=== PATIENT | female | born 1940 | race Caucasian/White ===

== ENCOUNTER 2017-01-28 08:29 | Inpatient (IN) | payer MEDICARE, OTHER ==
[~2017-01-28] VITALS: Ht 160 cm; Wt 74.5 kg
[2017-01-28] MEDS ORDERED: DIPHTH/TET/ACEL PERTUSS (ADULT) 0.5 ML VIAL IM* ONE (09:00)
--- NOTE | 2017-01-28 09:40 | RADRPT ---
PROCEDURE: XR Knee. CLINICAL INDICATION: Fall, pain TECHNIQUE: 3 views of the left knee are available for review. COMPARISON: None available FINDINGS: No acute fracture or dislocation identified. Bony mineralization is normal. No radiopaque foreign body is identified. Alignment is anatomic. IMPRESSION: 1. Unremarkable left knee x-ray series. 2. No acute fracture or dislocation is seen. RPTAT: EE .Zack Srivastava MD, MD Date Time Electronically viewed and signed by .Zack Srivastava MD, on 01/28/2017 09:40 .R/
--- NOTE | 2017-01-28 09:52 | ERD ---
ER Documentation Chief Complaint Date/Time DATE: 01/28/17 TIME: 09:45 Chief Complaint grounf level fall with L facial trauma HPI 76-year-old female who presents emergency room with a ground-level fall. The patient states that she was ambulating in her left foot caught on uneven pavement. She fell forward hitting her head. She denies anticoagulants. The patient has multiple contusions and hematomas to the front of her face. The patient denies any pain. She denies any neck pain. She has small abrasion to her left knee but denies any pain. No prodrome of chest pain or shortness of breath. Unknown tetanus status. She does not know the names of her medications. ROS All systems reviewed and are negative except as per history of present illness. Medications Home Meds Reported Medications Ibuprofen* (Motrin*) 400 Mg Tab, 400 MG PO Q8H Y for PAIN, TAB 01/28/17 Multivitamins* (Theragran*) 1 Tab Tab, 1 TAB PO DAILY, TAB 01/28/17 Ferrous Sulfate* (Ferrous Sulfate*) 325 Mg Tabec, 325 MG PO DAILY, TAB 01/28/17 Verapamil Hcl* (Isoptin SR*) 120 Mg Tabsr, 120 MG PO BID, TAB.SA 01/28/17 Aspirin (Low Dose Aspirin) 81 Mg Tablet.dr, 81 MG PO DAILY, #30 TAB 01/28/17 Atorvastatin* (Atorvastatin*) 40 Mg Tablet, 40 MG PO QHS, #30 TAB 01/28/17 Clopidogrel Bisulfate (Clopidogrel) 75 Mg Tablet, 75 MG PO DAILY, #30 TAB 01/28/17 Esomeprazole Mag Trihydrate (Nexium) 40 Mg Capsule.dr, 40 MG PO DAILY, #30 CAP 01/28/17 Ezetimibe* (Zetia*) 10 Mg Tablet, 10 MG PO HS, TAB 01/28/17 Ibandronate Sodium* (Boniva*) 150 Mg Tablet, 150 MG PO Q28D, TAB 01/28/17 Magnesium Oxide* (Mag-Oxide*) 400 Mg Tablet, 400 MG PO DAILY, TAB 01/28/17 Ascorbic Acid* (Vitamin C*) 500 Mg Capsule.sa, 500 MG PO DAILY, CAP 01/28/17 Calcium Carbonate/Vitamin D3 (OYSTER SHELL 500 MG + VIT D TB) 1 Each Tablet, 1 EACH PO TID, TAB 01/28/17 Allergies Allergies: Coded Allergies: No Known Allergy (Unverified , 01/28/17) PMhx/Soc Medical and Surgical Hx: pt denies Surgical Hx History of Surgery: No Anesthesia Reaction: No Hx Neurological Disorder: Yes (hx cva) Hx Respiratory Disorders: No Hx Cardiac Disorders: No Hx Psychiatric Problems: No Hx Miscellaneous Medical Probl: No Hx Alcohol Use: No Hx Substance Use: No Hx Tobacco Use: No Smoking Status: Never smoker FmHx Family History: No diabetes Physical Exam Vitals Vital Signs Date Time Temp Pulse Resp B/P Pulse Ox O2 Delivery O2 Flow Rate FiO2 01/28/17 10:40 97.8 67 18 125/63 99 Room Air 01/28/17 08:37 97.8 86 20 106/89 96 Physical Exam Airway is intact Bilateral breath sounds Strong distal pulses No obvious deficits General: Well developed, well nourished, no acute distress Head: Multiple abrasions noted to the face with a left supraorbital hematoma, left hematoma over the zygomatic arch, small laceration inside upper lip with upper lip hematoma Eyes: Pupils equally reactive, EOM intact ENT: Moist mucous membranes, no dental injury or loose dentition, the patient has a laceration inside the mucosa of the left upper lip that is superficial Neck: Supple, no lymphadenopathy, No midline tenderness, deformities, step-offs to the cervical spine, full active and passive range of motion without midline pain. Respiratory: Lungs clear bilaterally, no distress, no chest wall tenderness, no crepitus Cardiovascular: RRR, no murmurs, rubs, or gallops Abdominal: Soft, non-tender, non-distended, no peritoneal signs, pelvis is stable : Deferred MSK: No edema, no unilateral swelling, 5/5 strength, no midline tenderness deformities or step-offs to the thoracolumbar spine. Left knee with full active and passive range of motion with no bony mallet abnormalities. No other bony abnormalities to the extremity Neurologic: Alert and oriented, moving all extremities, normal speech, no focal weakness, no cerebellar signs Skin: No ecchymoses or bruising to the chest or abdomen, abrasion noted to the left knee Psych: Normal mood Result Diagram: 01/28/17 1038 01/28/17 1038 Results 24 hrs Laboratory Tests Test 01/28/17 10:38 White Blood Count 9.410^3/ul Red Blood Count 4.3610^6/ul Hemoglobin 12.5g/dl Hematocrit 38.6% Mean Corpuscular Volume 88.5fl Mean Corpuscular Hemoglobin 28.7pg Mean Corpuscular Hemoglobin Concent 32.4g/dl Red Cell Distribution Width 14.1% Platelet Count 90020^3/UL Mean Platelet Volume 10.1fl Neutrophils % 75.5% Lymphocytes % 19.2% Monocytes % 4.1% Eosinophils % 0.4% Basophils % 0.3% Nucleated Red Blood Cells % 0.0/100WBC Neutrophils # 7.110^3/ul Lymphocytes # 1.810^3/ul Monocytes # 0.410^3/ul Eosinophils # 0.010^3/ul Basophils # 0.010^3/ul Nucleated Red Blood Cells # 0.010^3/ul Prothrombin Time 12.4Sec Prothrombin Time Ratio 1.0 INR International Normalized Ratio 0.92 Activated Partial Thromboplast Time 23.9Sec Sodium Level 143mmol/L Potassium Level 3.9mmol/L Chloride Level 104mmol/L Carbon Dioxide Level 27mmol/L Anion Gap 16 Blood Urea Nitrogen 18mg/dl Creatinine 0.53mg/dl Glucose Level 99mg/dl Calcium Level 9.4mg/dl Current Medications Medications (Trade) Dose Ordered Sig/Zhou Route PRN Reason Start Time Stop Time Status Last Admin Dose Admin Diphtheria/ Tetanus/Acell Pertussis (Adacel) 0.5 ml ONCE ONCE IM* 01/28/17 09:00 01/28/17 09:01 DC 01/28/17 08:46 Ondansetron HCl (Zofran Inj) 4 mg ER BRIDGE PRN IV NAUSEA AND/OR VOMITING 01/28/17 12:00 01/29/17 11:59 Acetaminophen (Tylenol Tab) 650 mg ER BRIDGE PRN PO MILD PAIN/FEVER 01/28/17 12:00 01/29/17 11:59 Procedures/MDM EKG, MONITORS, & DIAGNOSTIC IMAGING: X-ray left knee: I reviewed and interpreted multiple views of the x-ray Bones: No evidence of acute fracture dislocation or subluxation Soft tissue: No evidence of foreign body CT brain: IMPRESSION: 1. 5 mm mild hyperdensity near the right central sulcus/precentral gyrus which is concerning for small subarachnoid hemorrhage. 2. Left frontal scalp and left periorbital soft tissue swelling and hematoma without underlying skull fracture. 3. 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 4. Mild intracranial atherosclerosis and moderate chronic small vessel ischemic changes. 5. Mild generalized cerebral volume loss. Critical result: A call report was made and above findings were discussed and acknowledged by Eugenio Rodriguez on 01/28/2017 10:30 AM . RPTAT: CT facial bone: IMPRESSION: 1. Left frontal scalp and periorbital soft tissue swelling and hematoma without underlying fracture. RPTAT: CT cervical spine: IMPRESSION: 1. No acute fracture or traumatic subluxation. 2. Multilevel mild degenerative changes of the cervical spine, most prominent at C5-C6. 3. Multilevel mild to moderate foraminal stenosis as outlined in details in findings. 4. Posterior disk osteophyte complexes contribute to mild to moderate spinal canal narrowing at C5-C6 and mild at C3-C4, C4-C5 and C5-C6. RPTAT: Laboratory analysis: No evidence of anemia, thrombocytopenia or coagulopathy MEDICAL DECISION MAKING: The patient presents with clear mechanical fall. The patient describes the fall. The patient has multiple blunt injuries to the face and a contusion to the left knee. No midline tenderness of the cervical spine but given the patient's age CT imaging would be appropriate. The patient refuses pain medication. Tetanus will be updated. Wound care to be provided. ER COURSE: The patient has CT evidence of a small traumatic subarachnoid hemorrhage. An emergent phone call was placed to Dr. Duran, on-call for neurosurgery. He was able to review the imaging. He recommends inpatient hospitalization, disposition to telemetry and repeat CT in 6 hours. The patient's laboratory testing does not show evidence of coagulopathy. The patient's pain remains well controlled. Her neurologic exam is normal. I kept the patient and/or family informed of laboratory and diagnostic imaging results throughout the emergency room course. DISPOSITION PLAN: Telemetry admission CONSULTATION: Accepting care team and consultations: I discussed the current laboratory data, diagnostic imaging and emergency care provided. Admitting team: Dr. Otis Guan, primary care physician notified Admitting team indication: Insurance directed Consulting services: Dr. Duran, neurosurgery Departure Diagnosis: Primary Impression: Traumatic subarachnoid hemorrhage Encounter type: initial encounter Loss of consciousness presence/duration: without LOC Qualified Code: S06.6X0A - Traumatic subarachnoid hemorrhage, without LOC, initial encounter Additional Impressions: Periorbital contusion of left eye Encounter type: initial encounter Qualified Code: S05.12XA - Periorbital contusion of left eye, initial encounter Laceration of oral cavity Encounter type: initial encounter Qualified Code: S01.512A - Laceration of oral cavity, initial encounter Condition: Stable EUGENIO GRADY MD Jan 28, 2017 09:51
[2017-01-28] MEDS ORDERED: CALC-277 PO (10:28)
[2017-01-28] MEDS ORDERED: ASCO500C7 PO (10:29)
[2017-01-28] MEDS ORDERED: MAGN400T27 PO (10:29)
[2017-01-28] MEDS ORDERED: IBAN150T7 PO (10:36)
--- NOTE | 2017-01-28 10:36 | RADRPT ---
PROCEDURE: CT Brain without. CLINICAL INDICATION: Trauma, fall, pain. TECHNIQUE: A CT of the brain was performed on multidetector high-resolution CT scanner utilizing a xial sections from the skull base through the vertex without contrast. The scan was reviewed in sof t tissue brain and high frequency resolution bone algorithm windows. Images were reviewed on a high -resolution PACS workstation. One or more the following does reduction techniques were utilized: Aut omated exposure control, adjustment of the mA/ or kV according to patient's size, or use of iterativ e reconstruction technique. The exam CTDI = 43.48 mGy and the DLP = 720.23 mGy-cm. COMPARISON: None available. FINDINGS: There is 5 mm mild hyperdensity near the right central sulcus/precentral gyrus which is concerning f or small subarachnoid hemorrhage. Old infarct is noted involving left frontal periventricular white matter with associated ex vacuo di latation of the left frontal horn. The ventricles and sulci are otherwise mildly to moderately prominent indicative of volume loss. The re is no mass effect or midline shift. The garcia/white matter differentiation is preserved. There are additional moderate foci of hypoattenuation in the white matter, which are nonspecific in etiology but likely reflect chronic small vessel ischemic changes. There are mild intracranial vasc ular calcifications consistent with atherosclerosis. The visualized paranasal sinuses are essentiall y clear. There is thinning of bilateral lens indicative of prior lens replacement. Left frontal scalp and left periorbital soft tissue swelling and hematoma are noted without underlyi ng skull fracture. IMPRESSION: 1. 5 mm mild hyperdensity near the right central sulcus/precentral gyrus which is concerning for sm all subarachnoid hemorrhage. 2. Left frontal scalp and left periorbital soft tissue swelling and hematoma without underlying sku ll fracture. 3. 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 4. Mild intracranial atherosclerosis and moderate chronic small vessel ischemic changes. 5. Mild generalized cerebral volume loss. Critical result: A call report was made and above findings were discussed and acknowledged by Eugenio Chen on 01/28/2017 10:30 AM . RPTAT: HH .Ledy Galicia MD, Date Time Electronically viewed and signed by .Ledy Galicia MD, MD on 01/28/2017 10:36 .N/
--- NOTE | 2017-01-28 10:41 | RADRPT ---
PROCEDURE: CT scan facial bones CLINICAL INDICATION: Trauma. Facial injury. Pain. TECHNIQUE: CT scan of the face was performed on the a high-resolution multidetector CT scanner wit h multiple contiguous axial images obtained through the face. Coronal and sagittal reformatted imag es were obtained from the axial source images. Exam CTDI = 29.52 mGy and the DLP = 583.94 mGy-cm. COMPARISON: None available. FINDINGS: Left frontal scalp and periorbital soft tissue swelling and hematoma are noted measuring up to 1 cm in thickness without underlying fracture. No acute fracture or dislocation is seen. The orbital globes are unremarkable. Nasal septum is inta ct. Paranasal sinuses are clear. There is thinning of bilateral lens indicative of prior lens repl acement. IMPRESSION: 1. Left frontal scalp and periorbital soft tissue swelling and hematoma without underlying fracture . RPTAT: HH .Ledy Galicia MD, Date Time Electronically viewed and signed by .Ledy Galicia MD, on 01/28/2017 10:41 .N/
[2017-01-28 10:45] LABS: ADD SCAN DIFF NO
--- NOTE | 2017-01-28 10:46 | RADRPT ---
PROCEDURE: CT cervical spine without contrast CLINICAL INDICATION: Trauma. Neck pain. TECHNIQUE: CT scan of the cervical spine [facility] was administered. Coronal and sagittal reformatted images were obtained from th e axial source images. Images were reviewed on a high-resolution PACS workstation. One or more the f ollowing does reduction techniques were utilized: Automated exposure control, adjustment of the mA/ or kV according to patient's size, or use of iterative reconstruction technique. Exam CTDI = 22.14 m Gy and the DLP = 421.77 mGy-cm. COMPARISON: None available. FINDINGS: There is maintenance of the normal cervical lordosis. Alignment remains intact. No acute fracture or dislocation is seen. The vertebral body heights are preserved. No mass, hematoma, or other soft tissue abnormality is seen. There are multilevel mild degenerative changes of the cervical spine, manifested by osteophytosis an d disc height narrowing, most prominent at C5-C6. Uncovertebral osteophytes and facet arthropathy re sult in multilevel foraminal stenosis: at C3-C4 mild on the right, at C4-C5 moderate on the right an d mild to moderate on the left, and at C5-C6 moderate on the right and mild to moderate on the left. Posterior disk osteophyte complexes contribute to mild to moderate spinal canal narrowing at C5-C6 and mild at C3-C4, C4-C5 and C5-C6. IMPRESSION: 1. No acute fracture or traumatic subluxation. 2. Multilevel mild degenerative changes of the cervical spine, most prominent at C5-C6. 3. Multilevel mild to moderate foraminal stenosis as outlined in details in findings. 4. Posterior disk osteophyte complexes contribute to mild to moderate spinal canal narrowing at C5- C6 and mild at C3-C4, C4-C5 and C5-C6. RPTAT: HH .Ledy Galicia MD, MD Date Time Electronically viewed and signed by .Ledy Galicia MD, MD on 01/28/2017 10:46 .N/
[2017-01-28] MEDS ORDERED: EZET10TA3 PO (10:50)
[2017-01-28] MEDS ORDERED: ESOM40CA PO (10:51)
[2017-01-28 10:52] LABS: BASOPHILS % 0.3 % (0.0-2.0); EOSINOPHILS % 0.4 % (0.0-7.0); HEMATOCRIT 38.6 % (37.0-47.0); HEMOGLOBIN 12.5 g/dl (12.0-16.0); LYMPHOCYTES # 1.8 10^3/ul (0.8-2.9); LYMPHOCYTES % 19.2 % (15.0-51.0); MEAN CORPUSCULAR HEMOGLOBIN 28.7 pg (29.0-33.0); MEAN CORPUSCULAR HGB CONC 32.4 g/dl (32.0-37.0); MEAN CORPUSCULAR VOLUME 88.5 fl (82.0-101.0); MEAN PLATELET VOLUME 10.1 fl (7.4-10.4); MONOCYTE # 0.4 10^3/ul (0.3-0.9); MONOCYTES % 4.1 % (0.0-11.0); NEUTROPHIL # 7.1 10^3/ul (1.6-7.5); NEUTROPHILS % 75.5 % (39.0-77.0); PLATELET COUNT 213 10^3/UL (140-415); RED BLOOD COUNT 4.36 10^6/ul (4.20-5.40); RED CELL DISTRIBUTION WIDTH 14.1 % (11.5-14.5); WHITE BLOOD COUNT 9.4 10^3/ul (4.8-10.8)
[2017-01-28] MEDS ORDERED: ASPI-664 PO (10:54)
[2017-01-28] MEDS ORDERED: ATOR40TA68 PO (10:54)
[2017-01-28] MEDS ORDERED: CLOP75TA27 PO (10:54)
[2017-01-28] MEDS ORDERED: VER120SR PO (10:55)
[2017-01-28] MEDS ORDERED: FER325 PO (10:56)
[2017-01-28] MEDS ORDERED: MULTI PO (10:56)
[2017-01-28] MEDS ORDERED: IBUP400T22 PO (10:57)
[2017-01-28 11:00] LABS: POTASSIUM 3.9 mmol/L (3.5-5.1)
[2017-01-28 11:02] LABS: CREATININE 0.53 mg/dl (0.44-1.00); INR 0.92; PARTIAL THROMBOPLASTIN TIME 23.9 Sec (25.0-35.0); PROTIME 12.4 Sec (12.2-14.2)
[2017-01-28 11:03] LABS: CALCIUM 9.4 mg/dl (8.4-10.2)
[2017-01-28] MEDS ORDERED: ACETAMINOPHEN 325 MG TAB PO PRN (12:00)
[2017-01-28] MEDS ORDERED: ONDANSETRON 4 MG INJ IV PRN (12:00)
[2017-01-28 14:38] VITALS: TEMP 97.9
[2017-01-28] MEDS ORDERED: IBUPROFEN 600 MG TAB PO ONE (15:30)
--- NOTE | 2017-01-28 18:51 | RADRPT ---
PROCEDURE: CT Brain without contrast. CLINICAL INDICATION: Follow-up subarachnoid hemorrhage TECHNIQUE: A CT of the brain was performed on a GE [employer] 64-slice CT scanner utilizing axial imaging from the skull base through the vertex without IV contrast. Multiplanar reformatted images were made. Images were reviewed on a PACS workstation. The CTDIvol is 43.48 mGy and the DLP is 720 .23 mGycm. One of the following 3 dose reduction techniques were used: Automated exposure control; adjustment of the mA and/or kV according to patient size; or use of iterative reconstruction technique. COMPARISON: Head CT dated 01/28/2017 FINDINGS: There is no intracranial hemorrhage, mass effect, or midline shift. No extra-axial fluid collection is seen. The ventricles and sulci are age appropriate. Mild diffuse volume loss is present with ex vacuo dilatation of the left lateral ventricle. The previously-described 5 mm focus of subarachnoid hemorrhage in the right central sulcus and precentral gyrus is slightly decreased in attenuation. Decreased attenuation is present in the left greater than right frontal and parietal lobes and speci fically the centrum semiovale continuing inferiorly into the left acosta radiography. A chronic lef t insular and acosta radiata infarct is present. No evidence for additional hemorrhage is present. M ild vascular calcifications are present of the intracranial internal carotid arteries. Visualized scalp and calvarium are remarkable for a left frontal and preseptal scalp hematoma withou t underlying calvarial fracture. The bilateral orbits are remarkable for remote lens replacement. T he bilateral paranasal sinuses, mastoid air cells and middle ear cavities are clear. IMPRESSION: 1. Interval evolution of previously described 5 mm focus of right central sulcus and precentral gyr us subarachnoid hemorrhage. No evidence for interval onset of new hemorrhages are present. 2. Interval decrease in the previously described left frontal scalp and pre-septal hematoma. 3. No significant interval change in the chronic left frontal acosta radiata and insular infarct. 4. Chronic left greater than right moderate microvascular ischemic disease and mild volume loss 5. Mild atherosclerotic vascular disease RPTAT: HDC .Ai Burgos MD, MD Date Time Electronically viewed and signed by .Ai Burgos MD, on 01/28/2017 18:51 .C/
--- NOTE | 2017-01-28 19:22 | QN ---
Documentation Comment [id number] KERRY DIALLO MD Jan 28, 2017 19:22
[2017-01-28 20:26] VITALS: PULSE 82
[2017-01-28] MEDS: VERAPAMIL (SR) 120 MG TAB PO SCH (21:00)
[2017-01-28] MEDS ORDERED: hydrALAzine 20 MG INJ IV PRN (21:30)
[2017-01-28] MEDS ORDERED: DEXTROSE 5%-0.45% NACL 1,000 ML IV SCH (21:30)
[2017-01-28 22:00] VITALS: Ht 160 cm; Wt 74.5 kg
[2017-01-28] MEDS: ATORVASTATIN 40 MG TAB PO SCH (22:12)
[2017-01-28] MEDS: EZETIMIBE 10 MG TAB PO SCH (22:12)
[2017-01-28] MEDS: CALCIUM/VITAMIN D (500/200) TAB PO SCH (22:12)
[2017-01-28 22:25] VITALS: BP 165/73; RESP 17
--- NOTE | 2017-01-28 23:33 | HP ---
DATE OF ADMISSION: 01/28/2017 HISTORY OF PRESENT ILLNESS: The patient is a 76-year-old female who has a history of hypertension. The patient has history of dyslipidemia, history of CVA. The patient presented to this hospital af ter a ground-level fall. She claimed that she was walking and she tripped and fell down, hitting he r head, and patient in the ER noted to have multiple contusions and hematoma to the front of the fac e. The patient's CT scan shows possible small [employer]ATIONS [employer] bleed. Blood pressure 125/63, hematocrit 38.6, s odium 143, potassium 3.9, and patient is being admitted for further management. CT brain shows 5 mm mid hyperdensity near right central sulcus, precentral gyrus which is concerning for small subarach noid hemorrhage, left frontal scalp and left periorbital soft-tissue swelling and hematoma without u nderlying skull fracture, old infarction involving left frontal periventricular white matter, mild i ntracranial atherosclerosis and moderate chronic small-vessel ischemic changes, mild generalized cer ebral volume loss. The patient's CT cervical spine: No acute fracture or traumatic subluxation, mu ltilevel mild degenerative changes of the cervical spine most prominent at C5-C6, multilevel mild to moderate foraminal stenosis. Posterior disk osteophyte. The patient is going to be seen by Dr. Calderon jama from Neurosurgery. PAST MEDICAL HISTORY: Hypertension, history of dyslipidemia, CVA in the past. ALLERGY HISTORY: NEGATIVE. FAMILY HISTORY: Noncontributory. SOCIAL HISTORY: Negative. MEDICATION HISTORY: 1. Ascorbic acid. 2. Aspirin. 3. Lipitor. 4. Calcium carbonate. 5. Plavix. 6. Omeprazole. 7. Zetia. 8. Iron sulfate. 9. Boniva. 10. Ibuprofen. 11. Magnesium oxide. 12. Multivitamin. 13. Verapamil. REVIEW OF SYSTEMS: HEENT: Unremarkable. No headache, diplopia, blurred vision. RESPIRATORY: Unremarkable. CARDIOVASCULAR: Unremarkable. ABDOMEN: Unremarkable. EXTREMITIES: No numbness, weakness, tingling. CENTRAL NERVOUS SYSTEM: As mentioned above. PHYSICAL EXAMINATION: GENERAL: The patient is awake, alert with facial bruise noted. VITAL SIGNS: Stable. Pulse 86, blood pressure 148/94. HEENT: Head is atraumatic, normocephalic. Pupils equal, reactive to light. NECK: Supple. No JVD. LUNGS: Clear. CARDIOVASCULAR: S1, S2 are normal. ABDOMEN: Soft, nontender. Bowel sounds present. No palpable mass or hepatosplenomegaly. No guard ing, rebound tenderness. EXTREMITIES: No cyanosis, clubbing, edema. CENTRAL NERVOUS SYSTEM: The patient is awake, alert. No focal deficit. LABORATORY DATA: As mentioned above. IMPRESSION: 1. Status post mechanical fall. 2. Central nervous system bleed. 3. Hypertension. 4. History of cerebrovascular accident. 5. Dyslipidemia. 6. History of osteoporosis. PLAN: Observe this patient, hold aspirin and Plavix, neuro watch. Other recommendations per Dr. Se ju Duran. Orders were done. Dictated By: KERRY DIALLO MD BS/NTS Conf#: [id number] DID#: [id number]
[2017-01-29] VITALS (11 sets, daily range): BP systolic 129–167; BP diastolic 60–77; PULSE 76–100; RESP 16–20
[2017-01-29 06:47] LABS: ADD SCAN DIFF NO
[2017-01-29 06:58] LABS: BASOPHILS % 0.2 % (0.0-2.0); EOSINOPHILS % 0.1 % (0.0-7.0); HEMATOCRIT 42.3 % (37.0-47.0); HEMOGLOBIN 13.6 g/dl (12.0-16.0); LYMPHOCYTES # 1.8 10^3/ul (0.8-2.9); LYMPHOCYTES % 12.8 % (15.0-51.0); MEAN CORPUSCULAR HEMOGLOBIN 28.1 pg (29.0-33.0); MEAN CORPUSCULAR HGB CONC 32.2 g/dl (32.0-37.0); MEAN CORPUSCULAR VOLUME 87.4 fl (82.0-101.0); MEAN PLATELET VOLUME 10.6 fl (7.4-10.4); MONOCYTE # 0.5 10^3/ul (0.3-0.9); MONOCYTES % 3.8 % (0.0-11.0); NEUTROPHIL # 11.3 10^3/ul (1.6-7.5); NEUTROPHILS % 82.7 % (39.0-77.0); PLATELET COUNT 257 10^3/UL (140-415); RED BLOOD COUNT 4.84 10^6/ul (4.20-5.40); RED CELL DISTRIBUTION WIDTH 14.1 % (11.5-14.5); WHITE BLOOD COUNT 13.7 10^3/ul (4.8-10.8)
[2017-01-29 07:55] LABS: CREATININE 0.48 mg/dl (0.44-1.00); POTASSIUM 3.9 mmol/L (3.5-5.1)
[2017-01-29] MEDS: CALCIUM/VITAMIN D (500/200) TAB PO SCH ×3 (08:14→20:40)
[2017-01-29] MEDS: MULTIVITAMINS THERAPEUTIC TAB PO SCH (08:14)
[2017-01-29] MEDS: FERROUS SULFATE (EC) 325 MG TAB PO SCH (08:14)
[2017-01-29] MEDS: MAGNESIUM OXIDE 400 MG TAB PO SCH (08:14)
[2017-01-29] MEDS: ASCORBIC ACID 500 MG TAB PO SCH (08:14)
[2017-01-29] MEDS: VERAPAMIL (SR) 120 MG TAB PO SCH ×2 (08:15→20:40)
[2017-01-29] MEDS ORDERED: ACETAMINOPHEN 325 MG TAB PO PRN (11:00)
--- NOTE | 2017-01-29 11:19 | PN ---
Date/Time of Note Date/Time of Note DATE: 01/29/17 TIME: 11:16 Assessment/Plan VTE Prophylaxis VTE Prophylaxis Intervention: ambulation Lines/Catheters IV [facility]ter [facility] (from [facility]): Peripheral IV Urinary Cath still in place: No Assessment/Plan Chief Complaint/Hosp Course 1. Status post mechanical fall. 2. Central nervous system bleed. 3. Hypertension. 4. History of cerebrovascular accident. 5. Dyslipidemia. 6. History of osteoporosis. Problems: Assessment/Plan 1. Dr Duran cleared pt 2. transfer to [facility] Subjective 24 Hr Interval Summary Constitutional: improved, no complaints Eyes: pain ENT: no complaints Respiratory: no complaints Cardiovascular: no complaints Gastrointestinal: no complaints Musculoskeletal: bone/joint pain Skin: bruising, erythema Exam/Review of Systems Vital Signs Vitals Vital Signs Date Time Temp Pulse Resp B/P Pulse Ox O2 Delivery O2 Flow Rate FiO2 01/29/17 09:19 100 01/29/17 07:38 98.5 20 143/67 96 01/28/17 18:51 Room Air Intake and Output 01/28/17 01/28/17 01/29/17 14:59 22:59 06:59 Intake Total 600 ml Output Total 500 ml Balance 100 ml Exam Constitutional: alert, oriented, well developed Head: normocephalic Eyes: nl conjunctiva ENMT: nl external ears & nose Neck: supple Respiratory: clear to auscultation Cardiovascular: regular rate and rhythm Gastrointestinal: soft Musculoskeletal: joint tenderness Extremities: normal pulses Results Result Diagram: 01/29/17 0605 01/29/17 0605 Results 24 hrs Laboratory Tests Test 01/28/17 18:47 01/29/17 06:05 Bedside Glucose 98 White Blood Count 13.7 #H Red Blood Count 4.84 Hemoglobin 13.6 Hematocrit 42.3 Mean Corpuscular Volume 87.4 Mean Corpuscular Hemoglobin 28.1 L Mean Corpuscular Hemoglobin Concent 32.2 Red Cell Distribution Width 14.1 Platelet Count 257 # Mean Platelet Volume 10.6 H Neutrophils % 82.7 H Lymphocytes % 12.8 L Monocytes % 3.8 Eosinophils % 0.1 Basophils % 0.2 Nucleated Red Blood Cells % 0.0 Neutrophils # 11.3 H Lymphocytes # 1.8 Monocytes # 0.5 Eosinophils # 0.0 Basophils # 0.0 Nucleated Red Blood Cells # 0.0 Sodium Level 136 Potassium Level 3.9 Chloride Level 103 Carbon Dioxide Level 24 Anion Gap 13 Blood Urea Nitrogen 12 Creatinine 0.48 Glucose Level 121 Calcium Level 10.0 Medications Medications Current Medications Ascorbic Acid (Vitamin C) 500 mg DAILY PO Last administered on 01/29/17 08:14 ; Admin Dose 500 MG; Start 01/29/17 at 09:00 Atorvastatin Calcium (Lipitor) 40 mg QHS PO Last administered on 01/28/17 22: 12; Admin Dose 40 MG; Start 01/28/17 at 21:00 Calcium/Vitamin D (Oyster Shell/ Vit-D (500/200)) 1 tab TID PO Last administered on 01/29/17 08:14; Admin Dose 1 TAB; Start 01/28/17 at 21:00 EZETIMIBE (Zetia) 10 mg HS PO Last administered on 01/28/17 22:12; Admin Dose 10 MG; Start 01/28/17 at 21:00 Ferrous Sulfate (Ferrous Sulfate (Ec)) 325 mg DAILY PO Last administered on 08:14; Admin Dose 325 MG; Start 01/29/17 at 09:00 Magnesium Oxide (Mag-Ox 400) 400 mg DAILY PO Last administered on 01/29/17 08: 14; Admin Dose 400 MG; Start 01/29/17 at 09:00 Multivitamins Therapeutic (Theragran) 1 tab DAILY PO Last administered on 08:14; Admin Dose 1 TAB; Start 01/29/17 at 09:00 Verapamil HCl (Isoptin Sr) 120 mg BID PO Last administered on 01/29/17 08:15; Admin Dose 120 MG; Start 01/28/17 at 21:00 Hydralazine HCl (Apresoline) 10 mg Q6H PRN IV ELEVATED SYSTOLIC BP; Start 01/28 at 21:30 Acetaminophen (Tylenol Tab) 650 mg Q6H PRN PO PAIN AND OR ELEVATED TEMP; Start 01/29/17 at 11:00 SOPHY DUFFY Jan 29, 2017 11:19
[2017-01-29] MEDS: ATORVASTATIN 40 MG TAB PO SCH (20:40)
[2017-01-29] MEDS: EZETIMIBE 10 MG TAB PO SCH (20:40)
[2017-01-30] VITALS: BP 149/68
[2017-01-30 06:27] LABS: ADD SCAN DIFF NO
[2017-01-30 06:32] LABS: BASOPHILS % 0.2 % (0.0-2.0); EOSINOPHILS # 0.1 10^3/ul (0.0-0.5); EOSINOPHILS % 0.8 % (0.0-7.0); HEMATOCRIT 40.7 % (37.0-47.0); HEMOGLOBIN 13.2 g/dl (12.0-16.0); LYMPHOCYTES # 2.4 10^3/ul (0.8-2.9); LYMPHOCYTES % 27.8 % (15.0-51.0); MEAN CORPUSCULAR HEMOGLOBIN 28.2 pg (29.0-33.0); MEAN CORPUSCULAR HGB CONC 32.4 g/dl (32.0-37.0); MEAN PLATELET VOLUME 10.7 fl (7.4-10.4); MONOCYTE # 0.6 10^3/ul (0.3-0.9); MONOCYTES % 6.8 % (0.0-11.0); NEUTROPHIL # 5.6 10^3/ul (1.6-7.5); NEUTROPHILS % 64.1 % (39.0-77.0); PLATELET COUNT 234 10^3/UL (140-415); RED BLOOD COUNT 4.68 10^6/ul (4.20-5.40); RED CELL DISTRIBUTION WIDTH 14.4 % (11.5-14.5); WHITE BLOOD COUNT 8.8 10^3/ul (4.8-10.8)
[2017-01-30 06:54] LABS: ALBUMIN/GLOBULIN RATIO 1.29; BILIRUBIN,INDIRECT 0.4 mg/dl (0-1.1); BILIRUBIN,TOTAL 0.4 mg/dl (0.2-1.3); CALCIUM 9.5 mg/dl (8.4-10.2); CREATININE 0.55 mg/dl (0.44-1.00); POTASSIUM 3.5 mmol/L (3.5-5.1); TOTAL PROTEIN 7.1 g/dl (6.1-8.1)
[2017-01-30 07:48] VITALS: BP 129/58; RESP 18
[2017-01-30] MEDS: MULTIVITAMINS THERAPEUTIC TAB PO SCH (08:46)
[2017-01-30] MEDS: MAGNESIUM OXIDE 400 MG TAB PO SCH (08:46)
[2017-01-30] MEDS: ASCORBIC ACID 500 MG TAB PO SCH (08:46)
[2017-01-30] MEDS: CALCIUM/VITAMIN D (500/200) TAB PO SCH ×3 (08:46→20:13)
[2017-01-30] MEDS: FERROUS SULFATE (EC) 325 MG TAB PO SCH (08:47)
[2017-01-30] MEDS: VERAPAMIL (SR) 120 MG TAB PO SCH ×2 (08:48→20:14)
--- NOTE | 2017-01-30 12:19 | PN ---
Date/Time of Note Date/Time of Note DATE: 01/30/17 TIME: 12:18 Assessment/Plan VTE Prophylaxis VTE Prophylaxis Intervention: ambulation Lines/Catheters IV C[facility]ter Type (from [facility] Peripheral IV Urinary Cath still in place: No Assessment/Plan Chief Complaint/Hosp Course 1. Status post mechanical fall. 2. Central nervous system bleed. 3. Hypertension. 4. History of cerebrovascular accident. 5. Dyslipidemia. 6. History of osteoporosis. Problems: Assessment/Plan 1. PlANNING TO TRANSFER TO [facility], pending 2. Nursing staff denied need 1:1 sitter for safety Subjective 24 Hr Interval Summary Constitutional: improved, no complaints Eyes: pain ENT: no complaints Respiratory: no complaints Cardiovascular: no complaints Exam/Review of Systems Vital Signs Vitals Vital Signs Date Time Temp Pulse Resp B/P Pulse Ox O2 Delivery O2 Flow Rate FiO2 01/30/17 07:48 98.4 81 18 129/58 92 01/29/17 23:00 Room Air Intake and Output 01/29/17 01/29/17 01/30/17 15:00 23:00 07:00 Intake Total 800 ml Balance 800 ml Exam Constitutional: alert, oriented Psych: no complaints Head: hematomas, lacerations, normocephalic Eyes: EOMI, nl conjunctiva ENMT: mucosa pink and moist Neck: supple Respiratory: clear to auscultation Cardiovascular: regular rate and rhythm Gastrointestinal: soft Results Result Diagram: 01/30/17 0510 01/30/17 0510 Results 24 hrs Laboratory Tests Test 01/30/17 05:10 White Blood Count 8.8 # Red Blood Count 4.68 Hemoglobin 13.2 Hematocrit 40.7 Mean Corpuscular Volume 87.0 Mean Corpuscular Hemoglobin 28.2 L Mean Corpuscular Hemoglobin Concent 32.4 Red Cell Distribution Width 14.4 Platelet Count 234 Mean Platelet Volume 10.7 H Neutrophils % 64.1 Lymphocytes % 27.8 Monocytes % 6.8 Eosinophils % 0.8 Basophils % 0.2 Nucleated Red Blood Cells % 0.0 Neutrophils # 5.6 Lymphocytes # 2.4 Monocytes # 0.6 Eosinophils # 0.1 Basophils # 0.0 Nucleated Red Blood Cells # 0.0 Sodium Level 138 Potassium Level 3.5 Chloride Level 104 Carbon Dioxide Level 27 Anion Gap 11 Blood Urea Nitrogen 16 Creatinine 0.55 Glucose Level 99 Calcium Level 9.5 Total Bilirubin 0.4 Direct Bilirubin 0.00 Indirect Bilirubin 0.4 Aspartate Amino Transf (AST/SGOT) 26 Alanine Aminotransferase (ALT/SGPT) 39 Alkaline Phosphatase 76 Total Protein 7.1 Albumin 4.0 Globulin 3.10 Albumin/Globulin Ratio 1.29 Medications Medications Current Medications Ascorbic Acid (Vitamin C) 500 mg DAILY PO Last administered on 01/30/17 08:46 ; Admin Dose 500 MG; Start 01/29/17 at 09:00 Atorvastatin Calcium (Lipitor) 40 mg QHS PO Last administered on 01/29/17 20: 40; Admin Dose 40 MG; Start 01/28/17 at 21:00 Calcium/Vitamin D (Oyster Shell/ Vit-D (500/200)) 1 tab TID PO Last administered on 01/30/17 08:46; Admin Dose 1 TAB; Start 01/28/17 at 21:00 EZETIMIBE (Zetia) 10 mg HS PO Last administered on 01/29/17 20:40; Admin Dose 10 MG; Start 01/28/17 at 21:00 Ferrous Sulfate (Ferrous Sulfate (Ec)) 325 mg DAILY PO Last administered on 08:47; Admin Dose 325 MG; Start 01/29/17 at 09:00 Magnesium Oxide (Mag-Ox 400) 400 mg DAILY PO Last administered on 01/30/17 08: 46; Admin Dose 400 MG; Start 01/29/17 at 09:00 Multivitamins Therapeutic (Theragran) 1 tab DAILY PO Last administered on 08:46; Admin Dose 1 TAB; Start 01/29/17 at 09:00 Verapamil HCl (Isoptin Sr) 120 mg BID PO Last administered on 01/30/17 08:48; Admin Dose 120 MG; Start 01/28/17 at 21:00 Hydralazine HCl (Apresoline) 10 mg Q6H PRN IV ELEVATED SYSTOLIC BP; Start 01/28 at 21:30 Acetaminophen (Tylenol Tab) 650 mg Q6H PRN PO PAIN AND OR ELEVATED TEMP; Start 01/29/17 at 11:00 SOPHY DUFFY Jan 30, 2017 12:19
[2017-01-30] MEDS ORDERED: POTASSIUM CHLORIDE (SR) 20 MEQ TAB PO STA (12:20)
[2017-01-30 19:47] VITALS: BP 138/63; RESP 20
[2017-01-30] MEDS: ATORVASTATIN 40 MG TAB PO SCH (20:13)
[2017-01-30] MEDS: EZETIMIBE 10 MG TAB PO SCH (20:14)
--- NOTE | 2017-01-31 00:48 | OPR ---
DATE OF OPERATION: 01/29/2017 REQUESTING PHYSICIAN: Eugenio Gibbons MD, with the emergency department. CONSULTING SERVICE: Neurosurgery. HISTORY OF PRESENT ILLNESS: This is a 76-year-old female with past medical history significant for hypertension, hypercholesterolemia, and a reported prior stroke in the past, who appears to be a fidelina rly good historian, and had a clear history of tripping and falling, and hitting her head. The bea ent then presented to the emergency department after she sustained a facial contusion and having fac ial pain. The patient denies having lightheadedness or loss of consciousness or convulsions. The p atient denies any blurriness of her vision or diplopia. She denies any focal weakness or numbness o f her upper or lower extremities. She denies any neck pain. She denies bowel or bladder dysfunctio n. PAST MEDICAL HISTORY: As noted above. ALLERGIES: NO KNOWN DRUG ALLERGIES. FAMILY HISTORY: Noncontributory. SOCIAL HISTORY: The patient denies smoking tobacco. She denies drinking alcoholic beverages. She denies use of illicit or recreational drugs. MEDICATIONS: The patient's medications are noted and attached to the chart. REVIEW OF SYSTEMS: The patient denies shortness of breath or chest pain. Please also see above for pertinent positives and negatives. PHYSICAL EXAMINATION: The patient is seen at bedside. She is awake, alert, oriented x4. The patie nt has left periorbital ecchymoses. Her right pupil is a 2-1 mm, equally round and reactive to ligh t. It is hard to open the left eye with the ecchymoses. The tongue is midline. Her language is fl uent. The patient had near full range of motion of her neck. She does not have significant cervica l tenderness. Muscle bulk and tone is normal, bilateral upper and lower extremities. Motor strengt h is 5-/5, bilateral upper and lower extremities. Sensation to light touch is grossly intact, bilat eral upper and lower extremities. Deep tendon reflexes are 1+, bilateral upper and lower extremitie s. Toes are downgoing bilaterally. There is no pronator drift. Gait testing has been deferred per patient. IMAGING: The patient has received 2 CTs of the head without contrast that show a punctate hyperdens ity consistent with a small subarachnoid hemorrhage in the right central sulcus pre-central gyrus ar ea that is stable on the followup CT. The patient also has evidence of a probable prior stroke by t he left insular area. ASSESSMENT AND PLAN: This is an elderly female with a clear history of having tripped and fallen, w ho has sustained a subarachnoid hemorrhage that is most likely traumatic in nature. Also, the locat ion of the punctate subarachnoid hemorrhage is also not in a typical region for a ruptured aneurysm. Given these findings, there is no acute neurosurgical intervention indicated. The patient is neur ologically stable. The patient tells me that there is a wedding that she would like to go to in 1-2 days. I have told the patient that there is no neurosurgical contraindication to the patient being discharged from the hospital; however, the patient needs to be further assessed by physical therapy and by the admitting hospitalist, to make sure that is safe to discharge the patient home. The pat ient may require some rehabilitation prior to being discharged; however, there is no acute neurosurg ical intervention indicated. Dictated By: MERON BELLA MD, SA/ZACKERY Conf#: [id number] DID#: [id number]
[2017-01-31 05:47] LABS: ADD SCAN DIFF NO
[2017-01-31 05:54] LABS: CREATININE 0.54 mg/dl (0.44-1.00)
[2017-01-31 05:55] LABS: CALCIUM 9.9 mg/dl (8.4-10.2)
[2017-01-31 08:09] VITALS: BP 126/57; RESP 19
[2017-01-31] MEDS: CALCIUM/VITAMIN D (500/200) TAB PO SCH ×2 (08:41→14:33)
[2017-01-31] MEDS: ASCORBIC ACID 500 MG TAB PO SCH (08:42)
[2017-01-31] MEDS: VERAPAMIL (SR) 120 MG TAB PO SCH (08:42)
[2017-01-31] MEDS: MULTIVITAMINS THERAPEUTIC TAB PO SCH (08:42)
[2017-01-31] MEDS: FERROUS SULFATE (EC) 325 MG TAB PO SCH (08:42)
[2017-01-31] MEDS: MAGNESIUM OXIDE 400 MG TAB PO SCH (08:42)
[2017-01-31 09:29] LABS: BASOPHILS % 0.4 % (0.0-2.0); EOSINOPHILS # 0.1 10^3/ul (0.0-0.5); EOSINOPHILS % 1.1 % (0.0-7.0); LYMPHOCYTES # 2.5 10^3/ul (0.8-2.9); LYMPHOCYTES % 22.5 % (15.0-51.0); MEAN CORPUSCULAR HEMOGLOBIN 28.4 pg (29.0-33.0); MEAN CORPUSCULAR HGB CONC 32.5 g/dl (32.0-37.0); MEAN CORPUSCULAR VOLUME 87.5 fl (82.0-101.0); MEAN PLATELET VOLUME 10.9 fl (7.4-10.4); MONOCYTE # 0.8 10^3/ul (0.3-0.9); MONOCYTES % 7.6 % (0.0-11.0); NEUTROPHIL # 7.5 10^3/ul (1.6-7.5); NEUTROPHILS % 67.9 % (39.0-77.0); PLATELET COUNT 247 10^3/UL (140-415); RED BLOOD COUNT 4.57 10^6/ul (4.20-5.40); RED CELL DISTRIBUTION WIDTH 14.4 % (11.5-14.5); WHITE BLOOD COUNT 11.1 10^3/ul (4.8-10.8)
--- NOTE | 2017-01-31 18:02 | PN ---
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 plan snf Problems: Subjective 24 Hr Interval Summary Subjective hx not possible: other (weakness) Exam/Review of Systems Vital Signs Vitals Vital Signs Date Time Temp Pulse Resp B/P Pulse Ox O2 Delivery O2 Flow Rate FiO2 01/31/17 08:09 99.5 89 19 126/57 94 01/29/17 23:00 Room Air Intake and Output 01/30/17 01/30/17 01/31/17 15:00 23:00 07:00 Intake Total 880 ml 600 ml Balance 880 ml 600 ml Exam Respiratory: clear to auscultation Cardiovascular: regular rate and rhythm Gastrointestinal: soft Musculoskeletal: nl extremities to inspection Extremities: normal pulses Results Result Diagram: 01/31/17 0453 01/31/17 0453 Results 24 hrs Laboratory Tests Test 01/31/17 04:53 White Blood Count 11.1 #H Red Blood Count 4.57 Hemoglobin 13.0 Hematocrit 40.0 Mean Corpuscular Volume 87.5 Mean Corpuscular Hemoglobin 28.4 L Mean Corpuscular Hemoglobin Concent 32.5 Red Cell Distribution Width 14.4 Platelet Count 247 Mean Platelet Volume 10.9 H Neutrophils % 67.9 Lymphocytes % 22.5 Monocytes % 7.6 Eosinophils % 1.1 Basophils % 0.4 Nucleated Red Blood Cells % 0.0 Neutrophils # 7.5 Lymphocytes # 2.5 Monocytes # 0.8 Eosinophils # 0.1 Basophils # 0.0 Nucleated Red Blood Cells # 0.0 Sodium Level 141 Potassium Level 4.0 Chloride Level 104 Carbon Dioxide Level 25 Anion Gap 16 Blood Urea Nitrogen 20 Creatinine 0.54 Glucose Level 104 Calcium Level 9.9 Medications Medications Current Medications Ascorbic Acid (Vitamin C) 500 mg DAILY PO Last administered on 01/31/17 08:42 ; Admin Dose 500 MG; Start 01/29/17 at 09:00 Atorvastatin Calcium (Lipitor) 40 mg QHS PO Last administered on 01/30/17 20: 13; Admin Dose 40 MG; Start 01/28/17 at 21:00 Calcium/Vitamin D (Oyster Shell/ Vit-D (500/200)) 1 tab TID PO Last administered on 01/31/17 14:33; Admin Dose 1 TAB; Start 01/28/17 at 21:00 EZETIMIBE (Zetia) 10 mg HS PO Last administered on 01/30/17 20:14; Admin Dose 10 MG; Start 01/28/17 at 21:00 Ferrous Sulfate (Ferrous Sulfate (Ec)) 325 mg DAILY PO Last administered on 08:42; Admin Dose 325 MG; Start 01/29/17 at 09:00 Magnesium Oxide (Mag-Ox 400) 400 mg DAILY PO Last administered on 01/31/17 08: 42; Admin Dose 400 MG; Start 01/29/17 at 09:00 Multivitamins Therapeutic (Theragran) 1 tab DAILY PO Last administered on 08:42; Admin Dose 1 TAB; Start 01/29/17 at 09:00 Verapamil HCl (Isoptin Sr) 120 mg BID PO Last administered on 01/31/17 08:42; Admin Dose 120 MG; Start 01/28/17 at 21:00 Hydralazine HCl (Apresoline) 10 mg Q6H PRN IV ELEVATED SYSTOLIC BP; Start 01/28 at 21:30 Acetaminophen (Tylenol Tab) 650 mg Q6H PRN PO PAIN AND OR ELEVATED TEMP; Start 01/29/17 at 11:00 KERRY DIALLO MD Jan 31, 2017 18:02
[2017-01-31 19:54] VITALS: BP 142/64; RESP 20
== END 2017-01-31 21:05 | DRG 87 ==
LOC: E/R 08:29 → TEL 11:40 → MS2 01-29 23:00
PROVIDERS: ADMIT Internal Medicine Nephrology; ATTEND Internal Medicine Nephrology
DX: S06.6X0A Traumatic subarachnoid hemorrhage without loss of consciousness, initial encounter (principal); I10 Essential (primary) hypertension; E78.5 Hyperlipidemia, unspecified; M81.0 Age-related osteoporosis without current pathological fracture; M25.78 Osteophyte, vertebrae; M48.00 Spinal stenosis, site unspecified; Z86.73 Personal history of transient ischemic attack (TIA), and cerebral infarction without residual deficits; E78.00 Pure hypercholesterolemia, unspecified; S00.83XA Contusion of other part of head, initial encounter; W18.09XA Striking against other object with subsequent fall, initial encounter
CPT/HCPCS: 36415; 70450; 70486; 72125; 73562; 80048; 80053; 82962; 85025; 85610; 85730; 90471; 90715; J7042

== ENCOUNTER → 2017-02-12 | Outpatient (CLI) | payer MEDICARE, OTHER ==
[~2017-02-12] MED LIST: ASCO500C7 PO; ASPI-664 PO; ATOR40TA68 PO; CALC-277 PO; CLOP75TA27 PO; ESOM40CA PO; EZET10TA3 PO; FER325 PO; IBAN150T7 PO; IBUP400T22 PO; MAGN400T27 PO; MULTI PO; VER120SR PO
--- NOTE | 2017-02-12 14:52 | RADRPT ---
PROCEDURE: CT Brain without contrast. CLINICAL INDICATION: Headache. History of cerebrovascular accident. TECHNIQUE: A CT of the brain without contrast was performed utilizing axial sections from the skul l base through the vertex. The patient was scanned without intravenous contrast enhancement. Sagitta l and coronal reformatted images were obtained using the data from the axial images. Total exam DLP is 720.23 mGy-cm. CTDIvol is 44.40 mGy. One or more of the following dose reduction techniques we re used: Automated exposure control, adjustment of the mA and/or kV according to patient size, use o f iterative reconstruction technique. COMPARISON: CT scan of the brain dated 01/28/2017. FINDINGS: There is no intracranial hemorrhage, mass effect, or midline shift. There is no extra-axial fluid co llection. Mild diffuse volume loss is present and there is ex vacuo dilatation of the left lateral v entricle. The previously-described small focus of subarachnoid hemorrhage in the right central sulcu s and precentral gyrus is no longer visualized. Decreased attenuation is present in the left greater than right frontal and parietal lobes and specifically the centrum semiovale continuing inferiorly into the left acosta radiata. A chronic left insular and acosta radiata infarct is present. There is no intracranial hemorrhage. Mild vascular calcifications are present of the intracranial internal carotid arteries. The previously noted left frontal and pre-septal scalp hematoma is no longer present. There is bila teral orbital glands replacement. The bilateral paranasal sinuses, mastoid air cells and middle ear cavities are clear. IMPRESSION: 1. Interval evolution of previously described 5 mm focus of right central sulcus and precentral gyru s subarachnoid hemorrhage. There is no new intracranial hemorrhage. 2. Interval high-resolution in the previously described left frontal scalp and pre-septal hematoma. 3. No change in the chronic left frontal acosta radiata and insular infarct. 4. 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 5. Mild atherosclerotic vascular disease. RPTAT: QQ .Jose Perea MD, Date Time Electronically viewed and signed by .Jose Perea MD, on 02/12/2017 14:51 .R/
== END | disposition home or self-care (01) ==
LOC: C/S 10:12
PROVIDERS: ATTEND Internal Medicine Nephrology
DX: R51 Headache (principal); Z86.73 Personal history of transient ischemic attack (TIA), and cerebral infarction without residual deficits
CPT/HCPCS: 70450